=== PATIENT | female | born 1950 | race Caucasian/White ===

== ENCOUNTER 2018-11-07 22:20 | Emergency (ER) | payer MEDICARE, BC, SELFPAY ==
[2018-11-07 22:22] VITALS: BP 171/97; PULSE 113; RESP 18; TEMP 36.6; O2SAT 99
--- NOTE | 2018-11-07 22:46 | W.ED.GENAD ---
Discharge Plan Disposition Patient Disposition: HOME Condition: Good Discharge Details Chief Complaint: Trauma Clinical Impression: Concussion, Contusion Reason For Visit: CHARLENE Primary Care Provider: Rabia Dodson ED Provider: Gonzalo Cornelius Home Meds and New Rx's Prescriptions: No Action lisinopril 10 MG tablet 10 mg PO DAILY Qty: 30 RF: 0 Discharge Instructions Instructions: Concussion (ED), Contusion in Adults (ED) Additional Instructions: Please use ice, Tylenol, and Motrin for control of the pain and swelling. Please follow-up promptly with your primary care provider in the next 24-48 hours. If you notice any worsening of your symptoms, or any new symptoms such as vomiting, diarrhea, fever, chills, shortness of breath, chest pain, numbness, weakness, or fainting , please return immediately to the emergency department for reevaluation. Please follow up with your primary care provider as soon as possible for reassessment and reevaluation. As always, it was a pleasure participating in your medical care today. Referrals: Rabia Dodson [Primary Care Provider] - Medical Decision Making This is a pleasant 68-year-old female who is on no blood thinners who presents for fall. She fell downstairs earlier today after having a few beers while watching [employer] game. Maximum distance might have been 13 steps. Questionable loss of consciousness. Physical exam demonstrates a notable left-sided scalp hematoma, no midline C-spine thoracic or lumbar spine tenderness. No evidence of hemotympanum, or other red flags on exam. No abnormalities on chest exam or abdominal exam. Because of the patient's hematoma, age, and other risk factors we will get a CT scan of the head to rule out any acute process or bleed. Clinically she shows no signs of clinical intoxication at this time, and demonstrates a normal neurologic exam. I am concerned that the patient most likely suffered from a notable concussion. 11:[address] imaging has returned and shows no evidence of acute bleed. Notable hematoma is present over the patient's left scalp. No other concerning findings on physical exam. No other significant abnormalities on exam. She continues to demonstrate a normal neurologic exam. The patient appears very clinically sober, and shows no neurologic deficits on repeat clinical exam at this time. I feel her signs and symptoms are consistent with a fall and subsequent notable concussion. The normal mental status, no neurologic deficits, no other abnormalities and a CT scan negative for acute bleed after her observation. Here I feel she can be safely discharged home. who is at bedside does feel comfortable with this plan. I have extensively reviewed the treatment plan and discharge instructions with the patient and their family. I have addressed all patient concerns at this time. The patient and family was made aware of what symptoms to monitor for that would warrant a return to the emergency department. Discussed the plan with the patient and family, they demonstrate verbal understanding and agreement with our assessment and plan at this time. EXAM: CT Head Without Contrast COMPARISON: No relevant prior studies available. FINDINGS: Brain: Typical for age. No hemorrhage. No evidence of acute infarct. No mass. Ventricles: No ventriculomegaly. Bones/joints: Unremarkable. Sinuses: No sinus fluid. Mastoid air cells: Unremarkable. Soft tissues: Scalp hematoma.. IMPRESSION: No acute intracranial EXAM: CT Cervical Spine Without Contrast COMPARISON: No relevant prior studies available. FINDINGS: Vertebrae: No acute fracture. Normal alignment. Vertebral body heights preserved. Discs/Spinal canal/Neural foramina: Typical for age. Soft tissues: Unremarkable. Lungs: Lung apices are unremarkable as visualized. IMPRESSION: No acute findings. Ppaj-xk-cxbnkfqy degenerative changes. Thank you for allowing us to participate in the care of your patient. Dictated and Authenticated by: Juan Rodriguez MD [facility] General Date/Time Provider Initiated Documentation: 11/07/18 22:30. [facility] Narrative: This is a 68-year-old female with past medical history of hypertension, who presents today for evaluation of a fall. The patient is on no blood thinners. Family states that roughly 1 hour prior to arrival after having a few beers after watching [employer] game patient fell down a flight of 13 steps. Patient does not recall the event, and family who is nearby was uncertain if she fell from the top or if she had been jail down. Maximum distance was 13 steps. After hearing a thud, family rushed down and found the patient who did respond to questioning, had spontaneous movement, showed no clear signs of loss of consciousness but was slightly confused. She did have pain behind her left head, as well as a mild hematoma. Patient had no other complaints at that time. On EMS arrival vital signs were stable, blood glucose is normal. Patient was able to get up and ambulate to the stretcher without significant difficulty but did need some assistance. Currently aside from mild headache the patient has no complaints including no complaints of numbness, tingling, vision changes, neck pain, chest pain, back pain, abdominal pain. Patient does complain of slight memory loss from today, but denies any other complaints. No other modifying factors. The patient denies any pertinent family history, IV or illicit drug use, or recent surgeries. Related Data Home Medications Medication Instructions Recorded Confirmed lisinopril 10 mg PO DAILY #30 tablet 04/22/16 Previous Rx's Medication Instructions Recorded lisinopril 10 mg PO DAILY #30 tablet 04/22/16 Allergies Allergy/AdvReac Type Severity Reaction Status Date / Time Penicillins Allergy Intermediate Hives Unverified 04/22/16 14:00 narcotics AdvReac Intermediate constipatio Uncoded 04/22/16 14:45 n General Stated Complaint: Trauma FLY: 3 Review of Systems Review of Systems All systems reviewed & are unremarkable except as noted in HPI and below PFSH Social History Smoking/Tobacco Use Status: Never Exam Narrative Exam Narrative: 1.Const: Well-nourished, Well-developed, appearing stated age 2.Eyes: PERRL, no conjunctival injection, and symmetrical lids. 3.ENT: Atraumatic external nose and ears. Moist MM. Neck: Symmetric, trachea midline, No thyromegaly. Notable hematoma over the patient's left superior posterior scalp. No evidence of deformity there is no evidence of raccoon eyes, quintero sign, CSF rhinorrhea, mastoid tenderness, cranial crepitus, hemotympanum, exophthalmos, or hyphema. Patient demonstrates intact dentition with no signs of tooth avulsion or fracture, no signs of jaw deformity, no evidence of a LeFort's fracture, with an intact palate, nose and orbital region. There is no evidence of a nasal septal hematoma. No proptosis. Jaw closes symmetrically. Airway is clear. 4.CVS: Regular rate and rhythm, Normal s1 and s2. No murmurs, carotid bruits, rubs, or gallops. Radial pulses 2+ bilaterally and symmetric. Dorsalis pedis pulses 2+ bilaterally and symmetric. 2+ capillary refill. No evidence of distant heart sounds. No extremity edema. No evidence of gross hemorrhage. 5.RESP: Airway clear, no obstructions. No abrasions or ecchymosis. Chest movement symmetric with respirations. No chest wall tenderness. Trachea midline. No crepitus. No step offs. No paradoxical movements. Lungs are clear to auscultation bilaterally. No rales, rhonchi, wheezing or stridor. Breath sound symmetric. No Sucking chest wounds. No clinical evidence of significant chest trauma. 6.GI: Soft, Nontender/Nondistended, No hepatosplenomegaly. No guarding or rebound. 7.MSK: Notable hematoma on the left superior posterior scalp., Extremities w/o deformity or ttp No cyanosis or clubbing, Normal movement of all extremities no midline tenderness to palpation over the CTLS spine. Normal ROM in flexion, extension, side bend, and rotation. Patient has +5 out of 5 strength in the lower extremities in dorsiflexion and plantarflexion, knee flexion and extension, hip flexion and extension. There is +2 over 2 dorsalis pedis pulses bilaterally. There is normal sensation to the skin with light touch at the foot, knee, and hip. Normal saddle sensation. Good sensation over the deep sural nerve area bilaterally. Rectal exam deferred. Reflexes are +2 over 4 in the patellar reflex bilaterally. +5 out of 5 strength in the medial, ulnar, radial nerve distribution bilaterally in the hands as well as intact light touch sensation to these dermatomes on the hands 8.Skin: Warm, Dry. No rashes or lesions. Please see ENT/musculoskeletal for description of hematoma. No evidence of laceration. No evidence of abrasion. 9.Neuro: library clerk II-XII grossly intact. Sensation grossly intact, no focal neurologic deficits. All 6 cardinal planes of vision are fully intact. No evidence of rotatory or vertical nystagmus. The patient demonstrated a normal duyoot-rbun-xtokvm, good dexterity. There was no evidence of dysdiadochokinesia. Patient was able to ambulate without difficulty. There was no wide-based gait. Romberg, and qpig-rw-erge are both normal on testing. Sensation was intact bilaterally as well as muscle strength bilaterally for all extremities. Patient was able to verbalize butter cup with no slurring, or miss pronunciation. 10.Psych: (AAO) x3. Appropriate mood and affect. Patient does not recall what she had for dinner, nor does she recall the fall however she remembers events from earlier today as well as previous memories from this week. Course Vital Signs Temperature 36.6 C 11/07/18 22:22 Pulse 113 H 11/07/18 22:22 Respiratory Rate 18 11/07/18 22:22 Blood Pressure 171/97 H 11/07/18 22:22 Pulse Oximetry 99 11/07/18 22:22 Temperature 36.6 C 11/07/18 22:22 Temperature Source Skin 11/07/18 22:22 Pulse 113 H 11/07/18 22:22 Respiratory Rate 18 11/07/18 22:22 Respiratory Effort Non-Labored 11/07/18 22:25 Respiratory Depth Normal 11/07/18 22:25 Respiratory Pattern Normal 11/07/18 22:25 Blood Pressure 171/97 H 11/07/18 22:22 Blood Pressure Position Sitting 11/07/18 22:22 Pulse Oximetry 99 11/07/18 22:22 Oxygen Delivery Method Room Air 11/07/18 22:22 Oxygen Flow Rate 0 11/07/18 22:22
[2018-11-07] MEDS: Acetaminophen 500 MG TAB 1000 MG PO (22:52)
[2018-11-07] MEDS: Normal Saline 1,000 ML 1000 ML IV (22:52)
--- NOTE | 2018-11-07 22:52 | DI.CT_ITS ---
SYMPTOM/DIAGNOSIS: FELL, LARGE LT SCALP HEMATOMA, ? BLEED NONCONTRAST HEAD CT: A noncontrast enhanced examination was carried out according to the usual protocol. Atrophic changes consistent with age are noted. There is no evidence of an intra/extra-axial hemorrhage, mass or fluid collection or edema. Nothing to suggest a territorial infarct. The ventricles are normal. There is no skull fracture. The sinuses are normal. The mastoid air cells are unremarkable. Note is made of a scalp hematoma. SUMMARY: No acute intracranial abnormality is seen. C-SPINE CT: A C-spine CT was obtained according to the usual protocol without contrast enhancement. There is no evidence of a fracture, subluxation or dislocation involving the cervical spine. The vertebral bodies are intact. Degenerative bony changes associated with disc space narrowing are noted at C5-C6 and C6-C7. Note is made of moderately prominent posterior spurring at the C5-C6 and C6-C7 levels. There is no evidence of significant foraminal narrowing. There is some compromise of the AP diameter of the neural canal, which has a maximal diameter of 10 mm. The posterior elements are intact. There are facet joint degenerative changes. The odontoid is intact and is closely applied to the anterior arch of C1. The prevertebral soft tissues appear unremarkable. SUMMARY: Degenerative changes as described above. No evidence of a fracture, or subluxation or dislocation.
--- NOTE | 2018-11-07 22:53 | ED.GENADUL_ITS ---
Discharge Plan Disposition Patient Disposition: HOME Condition: Good Discharge Details Chief Complaint: Trauma Clinical Impression: Concussion, Contusion Reason For Visit: CHARLENE Primary Care Provider: Rabia Dodson ED Provider: Gonzalo Cornelius Home Meds and New Rx's Prescriptions: No Action lisinopril 10 MG tablet 10 mg PO DAILY Qty: 30 RF: 0 Discharge Instructions Instructions: Concussion (ED), Contusion in Adults (ED) Additional Instructions: Please use ice, Tylenol, and Motrin for control of the pain and swelling. Please follow-up promptly with your primary care provider in the next 24-48 hours. If you notice any worsening of your symptoms, or any new symptoms such as vomiting, diarrhea, fever, chills, shortness of breath, chest pain, numbness, weakness, or fainting , please return immediately to the emergency department for reevaluation. Please follow up with your primary care provider as soon as possible for reassessment and reevaluation. As always, it was a pleasure participating in your medical care today. Referrals: Rabia Dodson [Primary Care Provider] - Medical Decision Making This is a pleasant 68-year-old female who is on no blood thinners who presents for fall. She fell downstairs earlier today after having a few beers while watching [employer] game. Maximum distance might have been 13 steps. Questionable loss of consciousness. Physical exam demonstrates a notable left-sided scalp hematoma, no midline C-spine thoracic or lumbar spine tenderness. No evidence of hemotympanum, or other red flags on exam. No abnormalities on chest exam or abdominal exam. Because of the patient's hematoma, age, and other risk factors we will get a CT scan of the head to rule out any acute process or bleed. Clinically she shows no signs of clinical intoxication at this time, and demonstrates a normal neurologic exam. I am concerned that the patient most likely suffered from a notable concussion. 11:[address] imaging has returned and shows no evidence of acute bleed. Notable hematoma is present over the patient's left scalp. No other concerning findings on physical exam. No other significant abnormalities on exam. She continues to demonstrate a normal neurologic exam. The patient appears very clinically sober, and shows no neurologic deficits on repeat clinical exam at this time. I feel her signs and symptoms are consistent with a fall and subsequent notable concussion. The normal mental status, no neurologic deficits, no other abnormalities and a CT scan negative for acute bleed after her observation. Here I feel she can be safely discharged home. who is at bedside does feel comfortable with this plan. I have extensively reviewed the treatment plan and discharge instructions with the patient and their family. I have addressed all patient concerns at this time. The patient and family was made aware of what symptoms to monitor for that would warrant a return to the emergency department. Discussed the plan with the patient and family, they demonstrate verbal understanding and agreement with our assessment and plan at this time. EXAM: CT Head Without Contrast COMPARISON: No relevant prior studies available. FINDINGS: Brain: Typical for age. No hemorrhage. No evidence of acute infarct. No mass. Ventricles: No ventriculomegaly. Bones/joints: Unremarkable. Sinuses: No sinus fluid. Mastoid air cells: Unremarkable. Soft tissues: Scalp hematoma.. IMPRESSION: No acute intracranial EXAM: CT Cervical Spine Without Contrast COMPARISON: No relevant prior studies available. FINDINGS: Vertebrae: No acute fracture. Normal alignment. Vertebral body heights preserved. Discs/Spinal canal/Neural foramina: Typical for age. Soft tissues: Unremarkable. Lungs: Lung apices are unremarkable as visualized. IMPRESSION: No acute findings. Gjfl-uv-mcslwfvu degenerative changes. Thank you for allowing us to participate in the care of your patient. Dictated and Authenticated by: Juan Rodriguez MD [facility] General Date/Time Provider Initiated Documentation: 11/07/18 22:30 . [facility] Narrative: This is a 68-year-old female with past medical history of hypertension, who presents today for evaluation of a fall. The patient is on no blood thinners. Family states that roughly 1 hour prior to arrival after having a few beers after watching [email or web address] game patient fell down a flight of 13 steps. Patient does not recall the event, and family who is nearby was uncertain if she fell from the top or if she had been mcc down. Maximum distance was 13 steps. After hearing a thud, family rushed down and found the patient who did respond to questioning, had spontaneous movement, showed no clear signs of loss of consciousness but was slightly confused. She did have pain behind her left head, as well as a mild hematoma. Patient had no other complaints at that time. On EMS arrival vital signs were stable, blood glucose is normal. Patient was able to get up and ambulate to the stretcher without significant difficulty but did need some assistance. Currently aside from mild headache the patient has no complaints including no complaints of numbness, tingling, vision changes, neck pain, chest pain, back pain, abdominal pain. Patient does complain of slight memory loss from today, but denies any other complaints. No other modifying factors. The patient denies any pertinent family history, IV or illicit drug use, or recent surgeries. Related Data Home Medications Medication Instructions Recorded Confirmed lisinopril 10 mg PO DAILY #30 tablet 04/22/16 Previous Rx's Medication Instructions Recorded lisinopril 10 mg PO DAILY #30 tablet 04/22/16 Allergies Allergy/AdvReac Type Severity Reaction Status Date / Time Penicillins Allergy Intermediate Hives Unverified 04/22/16 14:00 narcotics AdvReac Intermediate constipatio Uncoded 04/22/16 14:45 n General Stated Complaint: Trauma FLY: 3 Review of Systems Review of Systems All systems reviewed & are unremarkable except as noted in HPI and below PFSH Social History Smoking/Tobacco Use Status: Never Exam Narrative Exam Narrative: 1.Const: Well-nourished, Well-developed, appearing stated age 2.Eyes: PERRL, no conjunctival injection, and symmetrical lids. 3.ENT: Atraumatic external nose and ears. Moist MM. Neck: Symmetric, trachea midline, No thyromegaly. Notable hematoma over the patient's left superior posterior scalp. No evidence of deformity there is no evidence of raccoon eyes, quintero sign, CSF rhinorrhea, mastoid tenderness, cranial crepitus, hemotympanum, exophthalmos, or hyphema. Patient demonstrates intact dentition with no signs of tooth avulsion or fracture, no signs of jaw deformity, no evidence of a LeFort's fracture, with an intact palate, nose and orbital region. There is no evidence of a nasal septal hematoma. No proptosis. Jaw closes symmetrically. Airway is clear. 4.CVS: Regular rate and rhythm, Normal s1 and s2. No murmurs, carotid bruits, rubs, or gallops. Radial pulses 2+ bilaterally and symmetric. Dorsalis pedis pulses 2+ bilaterally and symmetric. 2+ capillary refill. No evidence of distant heart sounds. No extremity edema. No evidence of gross hemorrhage. 5.RESP: Airway clear, no obstructions. No abrasions or ecchymosis. Chest movement symmetric with respirations. No chest wall tenderness. Trachea midline. No crepitus. No step offs. No paradoxical movements. Lungs are clear to auscultation bilaterally. No rales, rhonchi, wheezing or stridor. Breath sound symmetric. No Sucking chest wounds. No clinical evidence of significant chest t rauma. 6.GI: Soft, Nontender/Nondistended, No hepatosplenomegaly. No guarding or rebound. 7.MSK: Notable hematoma on the left superior posterior scalp., Extremities w/o deformity or ttp No cyanosis or clubbing, Normal movement of all extremities no midline tenderness to palpation over the CTLS spine. Normal ROM in flexion, extension, side bend, and rotation. Patient has +5 out of 5 strength in the lower extremities in dorsiflexion and plantarflexion, knee flexion and extension, hip flexion and extension. There is +2 over 2 dorsalis pedis pulses bilaterally. There is normal sensation to the skin with light touch at the foot, knee, and hip. Normal saddle sensation. Good sensation over the deep sural nerve area bilaterally. Rectal exam deferred. Reflexes are +2 over 4 in the patellar r eflex bilaterally. +5 out of 5 strength in the medial, ulnar, radial nerve distribution bilaterally in the hands as well as intact light touch sensation to these dermatomes on the hands 8.Skin: Warm, Dry. No rashes or lesions. Please see ENT/musculoskeletal for description of hematoma. No evidence of laceration. No evidence of abrasion. 9.Neuro: social media director II-XII grossly intact. Sensation grossly intact, no focal neurologic deficits. All 6 cardinal planes of vision are fully intact. No evidence of rotatory or vertical nystagmus. The patient demonstrated a normal njdfsy-kiwo-mayaiw, good dexterity. There was no evidence of dysdiadochokinesia. Patient was able to ambulate without difficulty. There was no wide-based gait. Romberg, and dyvp-ta-chws are both normal on testing. Sensation was intact bilaterally as well as muscle strength bilaterally for all extremities. Patient was able to verbalize butter cup with no slurring, or miss pronunciation. 10.Psych: (AAO) x3. Appropriate mood and affect. Patient does not recall what she had for dinner, nor does she recall the fall however she remembers events from earlier today as well as previous memories from this week. Course Vital Signs Temperature 36.6 C 11/07/18 22:22 Pulse 113 H 11/07/18 22:22 Respiratory Rate 18 11/07/18 22:22 Blood Pressure 171/97 H 11/07/18 22:22 Pulse Oximetry 99 11/07/18 22:22 Temperature 36.6 C 11/07/18 22:22 Temperature Source Skin 11/07/18 22:22 Pulse 113 H 11/07/18 22:22 Respiratory Rate 18 11/07/18 22:22 Respiratory Effort Non-Labored 11/07/18 22:25 Respiratory Depth Normal 11/07/18 22:25 Respiratory Pattern Normal 11/07/18 22:25 Blood Pressure 171/97 H 11/07/18 22:22 Blood Pressure Position Sitting 11/07/18 22:22 Pulse Oximetry 99 11/07/18 22:22 Oxygen Delivery Method Room Air 11/07/18 22:22 Oxygen Flow Rate 0 11/07/18 22:22
--- NOTE | 2018-11-07 23:11 | DI.VRAD_ITS ---
EXAM: CT Head Without Contrast EXAM DATE/TIME: 11/07/2018 10:32 PM CLINICAL HISTORY: 68 years old, female; Injury or trauma; Fall; Initial encounter; Blunt trauma (contusions or hematomas); With loss of consciousness; Not specified; Injury date: 11/07/2018; Injury details: Fell down stairs TECHNIQUE: Axial computed tomography images of the head/brain without contrast. All CT scans at this facility use at least one of these dose optimization techniques: automated exposure control; mA and/or kV adjustment per patient size (includes targeted exams where dose is matched to clinical indication); or iterative reconstruction. Coronal and sagittal reformatted images were created and reviewed. COMPARISON: No relevant prior studies available. FINDINGS: Brain: Typical for age. No hemorrhage. No evidence of acute infarct. No mass. Ventricles: No ventriculomegaly. Bones/joints: Unremarkable. Sinuses: No sinus fluid. Mastoid air cells: Unremarkable. Soft tissues: Scalp hematoma.. IMPRESSION: No acute intracranial abnormality. Scalp hematoma. EXAM: CT Cervical Spine Without Contrast EXAM DATE/TIME: 11/07/2018 10:32 PM CLINICAL HISTORY: 68 years old, female; Injury or trauma; Fall; Initial encounter; Blunt trauma (contusions or hematomas); With loss of consciousness; Not specified; Injury date: 11/07/2018; Injury details: Fell down stairs TECHNIQUE: Axial computed tomography images of the cervical spine without intravenous contrast. All CT scans at this facility use at least one of these dose optimization techniques: automated exposure control; mA and/or kV adjustment per patient size (includes targeted exams where dose is matched to clinical indication); or iterative reconstruction. Coronal and sagittal reformatted images were created and reviewed. COMPARISON: No relevant prior studies available. FINDINGS: Vertebrae: No acute fracture. Normal alignment. Vertebral body heights preserved. Discs/Spinal canal/Neural foramina: Typical for age. Soft tissues: Unremarkable. Lungs: Lung apices are unremarkable as visualized. IMPRESSION: No acute findings. [id number] degenerative changes. Dictated and Authenticated by: Juan Rodriguez MD. Ordering:WILBER Sánchez MD
[2018-11-07 23:25] VITALS: BP 164/91; PULSE 108; RESP 16; TEMP 36.6; O2SAT 99
== END 2018-11-07 23:37 | disposition home or self-care (01) ==
PROVIDERS: Emergency Provider Student in an Organized Health Care Education/Training Program; PCP Family Medicine
DX: S06.0X0A Concussion without loss of consciousness, initial encounter (principal); S00.03XA Contusion of scalp, initial encounter; W10.8XXA Fall (on) (from) other stairs and steps, initial encounter; I10 Essential (primary) hypertension
CPT/HCPCS: 96360; 99283; 70450; 72125

== ENCOUNTER 2019-08-01 00:23 | Outpatient (CLI) | payer MEDICARE, BC, SELFPAY ==
--- NOTE | 2019-08-01 11:05 | DI.MAMMO_ITS ---
EXAM: MAMMO SCREENING CLINICAL HISTORY: SCREENING Z12.31 TECHNIQUE: Mammograms were interpreted according to the usual protocol including computer analysis w [employer] CAD system, tomosynthesis and C-view imaging. COMPARISON: 2016 FINDINGS: The breasts are composed of heterogeneous densities, which may obscure small masses, breast density c ategory C. No suspicious masses or suspicious microcalcifications are seen. No skin thickening or ab normal axillary lymph nodes are seen. There has been no significant change from prior exam. IMPRESSION: Category 1, negative mammogram. Yearly screening mammography is recommended. BI-RADS Cat 1 - Negative Breast Density - Category C - Heterogeneously dense
== END 2019-08-01 00:43 ==
PROVIDERS: PCP Family Medicine; Visit Provider Family Medicine
DX: Z12.31 Encounter for screening mammogram for malignant neoplasm of breast (principal)
CPT/HCPCS: 77063; 77067

== ENCOUNTER 2019-12-09 08:45 | Outpatient (REF) | payer MEDICARE, BC, SELFPAY ==
[2019-12-09 11:44] LABS: ALT 30 U/L (14-59); AST 21 U/L (15-37); Albumin 4.1 g/dL (3.4-5.0); Alkaline Phosphatase 77 U/L (46-116); Anion Gap 10.7 mmol/L (3-11); BUN 7 mg/dL (7-18); Bilirubin, Total 0.6 mg/dL (0.2-1.0); CO2 28.3 mmol/L (21.0-32.0); CREATININE 0.76 mg/dL (0.55-1.02); Calcium 9.6 mg/dL (8.5-10.1); Calculated LDL 205 mg/dL (<100); Chloride 102 mmol/L (98-107); Cholesterol 301 mg/dL (<200); Glucose 114 mg/dL (74-106); HDL Cholesterol 65 mg/dL (40-60); Potassium 4.6 mmol/L (3.5-5.1); Sodium 141 mmol/L (136-145); Total Protein 7.4 g/dL (6.4-8.2); Triglyceride 158 mg/dL (<150)
== END 2019-12-09 09:05 ==
LOC: NCHCN 08:45
PROVIDERS: PCP Family Medicine; Visit Provider Family Medicine
DX: E78.5 Hyperlipidemia, unspecified (principal); I10 Essential (primary) hypertension
CPT/HCPCS: 80053; 80061

== ENCOUNTER 2020-10-14 16:14 | Outpatient (REF) | payer MEDICARE, BC, SELFPAY ==
[2020-10-16 17:15] LABS: COVID-19 RT-PCR UVMMC Result Negative (Negative)
== END 2020-10-14 16:34 ==
LOC: NCHCN 16:14
PROVIDERS: PCP Family Medicine; Visit Provider Family Medicine
DX: J06.9 Acute upper respiratory infection, unspecified (principal)
CPT/HCPCS: U0003

== ENCOUNTER 2020-10-22 21:40 | Outpatient (REF) | payer MEDICARE, BC, SELFPAY ==
[2020-10-22 21:51] LABS: Bilirubin Negative (Negative); Blood Trace-intact (Negative); Clarity Sl Cloudy (Clear); Glucose Negative (Negative); Ketones Negative (Negative); Leukocyte Esterase Moderate (Negative); Nitrite Negative (Negative); Specific Gravity 1.015 (1.005-1.025); Urobilinogen 0.2 EU/dL (Up TO 0.2)
[2020-10-22 21:55] LABS: Bacteria Moderate HPF (Negative); Epithelial Cells Few HPF (Negative); WBC 20-50 HPF (0-5)
[2020-10-22 21:56] LABS: C & S Indicated? C&S Done As Ordered; Casts Negative LPF (Negative); Crystals Negative HPF (Negative); Mucus Negative (Negative)
== END 2020-10-22 22:00 ==
LOC: NCHCN 21:40
PROVIDERS: PCP Family Medicine; Visit Provider Family Medicine
DX: N39.0 Urinary tract infection, site not specified (principal)
CPT/HCPCS: 87077; 81003; 81015; 87086; 87186

== ENCOUNTER 2020-10-31 20:27 | Emergency (ER) | payer MEDICARE, BC, SELFPAY ==
[2020-10-31 20:33] VITALS: BP 135/102; PULSE 106; RESP 18; TEMP 37.2; O2SAT 93
[2020-10-31 20:40] VITALS: RESP 16
--- NOTE | 2020-10-31 20:45 | DI.CT_ITS ---
EXAM: CT CHEST PE CTA CLINICAL HISTORY: cough and fevers. TECHNIQUE: Imaging Protocol: Axial CT angiography was performed with multi-slice acquisition and mu lti-planar and/or 3D reconstructions. CONTRAST MATERIAL: Intravenous: Omnipaque 350 Contrast volume:80 mL COMPARISON: CT CHEST FOR PULMONARY EMBOLUS from 04/22/2016 FINDINGS: Tracheobronchial tree: Patent where visualized. Pulmonary parenchyma: No consolidation or dominant measurable mass. No architectural distortion. Depe ndent atelectasis in the lung bases. Pulmonary Arteries: No evidence of filling defect to suggest pulmonary emboli. Mediastinum and Yuliya: No dominant adenopathy or fluid collection. Visualized thyroid gland: Unremarkable. Pleura: No effusion or pneumothorax. Heart: The heart is not dilated. Mild coronary artery calcification. No pericardial effusion. Aorta: Thoracic aorta non-dilated. No evidence of dissection. Upper abdomen: Diffuse fatty infiltration of the liver. Bones: Degenerative changes. Soft tissues: Unremarkable. IMPRESSION: No evidence of pulmonary embolism, thoracic aortic dissection or aneurysm. RADIATION DOSE DELIVERED: 257.51mGy.cm Total DLP DATA REPOSITORY: All CT scans at this facility are submitted to the National Radiology Data Registry (NRDR) Dose Index Registry (DIR) with the [employer] (ACR). RADIATION OPTIMIZATION: All CT scans at this facility use at least one of these dose optimization te chniques: automated exposure control; mA and/or kV adjustment per patient size (includes targeted exa ms where dose is matched to clinical indication); or iterative reconstruction.
--- NOTE | 2020-10-31 20:51 | W.ED.GENAD ---
Discharge Plan Disposition Patient Disposition: HOME Condition: Stable Discharge Details Clinical Impression: Hyponatremia, UTI (urinary tract infection) Primary Care Provider: Rabia Dodson ED Provider: aNte Solano Home Meds and New Rx's Prescriptions: New levofloxacin 750 mg tablet 750 mg PO DAILY Qty: 5 RF: 0 Continued lisinopril 10 MG tablet 10 mg PO DAILY Qty: 30 RF: 0 metoprolol succinate 25 mg Tablet Extended Release 24 Hr 25 mg PO DAILY RF: 0 Discontinued valacyclovir [Valtrex] 500 mg Tablet 500 mg PO DAILY RF: 0 losartan-hydrochlorothiazide 100-25 mg Tablet 1 tab PO DAILY RF: 0 nitrofurantoin 100 mg Capsule 100 mg PO BID RF: 0 Discharge Instructions Instructions: Urinary Tract Infection in Women (ED), Hyponatremia (ED) Additional Instructions: your blood work showed low sodium likely from dehydration and also being on the hydrochlorothiazide. you still have a urinary tract infection stop taking the nitrofurantoin and start the levofloxacin stop taking the hydrochlorothiazide medicine and see your primary care provider this week to recheck your sodium level, discuss restarting this medicine after results return if you feel more ill, have persistent vomit or severe abdominal pain or back pain return to the emergency department Medical Decision Making 70 yo female with hx of htn comes in with 2 days of intermittent fevers to 102, feeling dehydrated and cough. She states the first few days of the month she developed a rash on the right chest and was diagnosed with shingles and started on valtrex and finished this 2 days ago. The rash is improving and she also is on nitrofurantoin which she will finishes tomorrow. She states her uti symptoms have resolved but started to have fevers and not drinking much along with a cough 2 days ago. Denies chest pain, abdominal pain, headache, neck pain/stiffness. She is speaking in full sentences on exam with clear lung sounds, has several healing patches on right lateral chest consistent with resolving shingles, no warmth or spreading redness. Has no cva tenderness, no abdominal tenderness, no meningismus, no focal motor or sensation deficits. Denies urinary symptoms. Given the reported fevers will obtain cultures, lacatate, influenza test and covid test. Given the cough and fevers will obtain cta to evaluate for possible pe vs pneumonia as well. 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 urine still shows evidence of infection with bacteria and leukocytes, will tx with levofloxacin. She feels well and has stable exam. Her blood work was remarkable for a sodium of 124 which is likely from lack of fluid intake being on hctz. She feels well enough to go home which I feel is reasonable given is able to take PO. I am going to have her stop the nitrofurantoin and start levofloxacin and hold her hctz and recheck her sodium with her pcp this week. Return precautions given Differential Diagnosis Differential Diagnosis: pyelo, pe, pna, covid, influenza Imaging Data Radiologic Study: Attestation: I personally reviewed and interpreted this imaging study as follows: Imaging: CT Scan Radiologist's impression: no acute findings Lab Data Lab results reviewed: Yes I reviewed the patient's lab results. HPI General Mode of arrival: ambulatory. Date/Time Provider Initiated Documentation: 10/31/20 20:28. Limitations to Documentation: no limitations. Information obtained by: patient. History of Present Illness 70 year old F presents to the emergency department with the chief complaint of fevers, described as moderate, Patient started experiencing this day(s) (2) and it has been intermittent. No relieving factors improve symptom(s), No exacerbating factors reported . Patient notes cough. Patient did receive the following treatments prior to arrival, none Related Data Home Medications Medication Instructions Recorded Confirmed lisinopril 10 mg PO DAILY #30 tablet 04/22/16 10/31/20 levofloxacin 750 mg PO DAILY #5 tab 10/31/20 metoprolol succinate 25 mg PO DAILY 10/31/20 10/31/20 Previous Rx's Medication Instructions Recorded lisinopril 10 mg PO DAILY #30 tablet 04/22/16 levofloxacin 750 mg PO DAILY #5 tab 10/31/20 Allergies Allergy/AdvReac Type Severity Reaction Status Date / Time Penicillins Allergy Intermediate Hives Unverified 10/31/20 20:39 narcotics AdvReac Intermediate constipatio Uncoded 10/31/20 20:39 n General Stated Complaint: GenMedical FLY: 3 Review of Systems All systems reviewed & are unremarkable except as noted in HPI and below Constitutional Constitutional: Denies chills Cardiovascular Cardiovascular: Denies chest pain and Denies dyspnea Respiratory Respiratory: Denies dyspnea Gastrointestinal Gastrointestinal: Denies abdominal pain, Denies nausea and Denies vomiting Musculoskeletal Musculoskeletal: Denies joint swelling Psychiatric Psychiatric: Denies depression [facility] Medical History (Updated 10/31/20 @ 22:25 by Nate Solano MD) Bladder infection High blood pressure Shingles Surgical History (Updated 10/31/20 @ 20:49 by Allyssa Monge) History of hysterectomy Social History Smoking/Tobacco Use Status: Never Smoking risk assessment performed?: Yes Alcohol Intake: current Alcohol Intake frequency: 0-2 drinks per day Alcohol type: beer Drug use: Never Substance use type: does not use Do you feel safe at home: Yes Do you feel safe in your relationship?: Yes Exam Const General: no acute distress Orientation: alert HENMT Head: normal to inspection Ears: external ears normal General nose exam: external nose normal Mouth: moist mucous membranes Eyes General: appearance normal, both eyes and all related structures Neck Neck: normal visual inspection Resp Effort & Inspection: normal respiratory effort and able to speak in complete sentences Cardio Rate: regular rate Skin General skin exam: elasticity normal and turgor normal Neuro General: patient alert and patient oriented x3 Extrem General: normal to inspection Psych Mental Status: mental status grossly normal Course Vital Signs Vital signs: Vital Signs Temperature 37.2 C 10/31/20 20:33 Pulse 106 H 10/31/20 20:33 Respiratory Rate 18 10/31/20 20:33 Blood Pressure 135/102 H 10/31/20 20:33 Pulse Oximetry 93 10/31/20 20:33 Temperature 37.2 C 10/31/20 20:33 Temperature Source Temporal Artery Scan 10/31/20 20:33 Pulse 106 H 10/31/20 20:33 Respiratory Rate 16 10/31/20 20:40 Respiratory Effort Non-Labored 10/31/20 20:40 Respiratory Depth Normal 10/31/20 20:40 Respiratory Pattern Normal 10/31/20 20:40 Blood Pressure 135/102 H 10/31/20 20:33 Pulse Oximetry 93 10/31/20 20:33 End Tidal Co2 5 10/31/20 20:33 Lab/Test Results Lab/Test Results: 10/31/20 20:40 Blood Blood Culture - Pending 10/31/20 20:40 Blood Blood Culture - Pending
[2020-10-31] MEDS: Omnipaque 350 MG/ML 100 ML BTL IJ (21:27)
[2020-10-31] MEDS: Normal Saline - Diluent 50 ML VIAL IV (21:30)
[2020-10-31] MEDS: Normal Saline 1,000 ML 1000 ML IV (21:30)
[2020-10-31 21:33] LABS: BE (Venous) 1 mmol/L (-2-3); HCO3 (Venous) 25 mmol/L (23-28); O2 Sat (Venous) 97 %; TCO2 (Venous) 21 mmol/L (24-29); pCO2 (Venous) 32 mmHg (41-51); pO2 (Venous) 78 mmHg
[2020-10-31 21:35] LABS: Lactate 1.1 mmol/L (0.6-1.4)
[2020-10-31 21:37] VITALS: BP 128/89
[2020-10-31 21:37] LABS: Abs Immature Grans 0.08 10^3/uL (0.0-0.06); Absolute Basophil Count 0.05 10^3/uL (0.0-0.2); Absolute Eosinophil Count 0.31 10^3/uL (0.0-0.7); Absolute Lymphocyte Count 0.41 10^3/uL (1.2-3.4); Absolute Monocyte Count 0.83 10^3/uL (0.1-0.8); Basophils % 0.4; Eosinophils % 2.7; HCT 38.6 % (36.0-46.0); HGB 13.6 g/dL (11.2-15.7); Immature Grans % 0.7; Lymphocytes % 3.6; MCHC 35.2 % (32.0-36.0); MCV 93.7 fL (80-95); MPV 9.2 fL (8.0-11.0); Monocytes % 7.3; Neutrophils % 85.3; Nucleated RBC 0 %; Platelet Count 291 10^3/uL (130-400); RBC 4.12 10^6/uL (3.93-5.22); RDW 11.8 % (11.7-14.6); RDW-SD 40.3 fL; WBC 11.33 10^3/uL (4.4-10.8)
[2020-10-31 21:38] LABS: Absolute Neutrophil Count 9.66 10^3/uL (1.2-6.7)
[2020-10-31 21:39] LABS: Bilirubin Negative (Negative); Blood Trace-lysed (Negative); Clarity Sl Cloudy (Clear); Glucose Negative (Negative); Ketones 15 mg/dL (Negative); Leukocyte Esterase Large (Negative); Nitrite Negative (Negative); Specific Gravity 1.015 (1.005-1.025); pH 6.5 (5-8)
[2020-10-31 21:52] LABS: Bacteria Many HPF (Negative); Casts Negative LPF (Negative); Crystals Negative HPF (Negative); Epithelial Cells Few HPF (Negative); Mucus Negative (Negative); RBC 0-2 HPF (0-2); WBC 20-50 HPF (0-5)
[2020-10-31 21:52] LABS: ALT 39 U/L (14-59); AST 28 U/L (15-37); Albumin 3.8 g/dL (3.4-5.0); Alkaline Phosphatase 70 U/L (46-116); Anion Gap 9.6 mmol/L (3-11); BUN 10 mg/dL (7-18); Bilirubin, Total 0.7 mg/dL (0.2-1.0); CO2 24.4 mmol/L (21.0-32.0); CREATININE 0.88 mg/dL (0.55-1.02); Calcium 9.6 mg/dL (8.5-10.1); Chloride 90 mmol/L (98-107); Glucose 141 mg/dL (74-106); Magnesium 1.6 mg/dL (1.8-2.4); Potassium 3.2 mmol/L (3.5-5.1); Total Protein 7.9 g/dL (6.4-8.2)
[2020-10-31 21:53] LABS: C & S Indicated? C&S Done As Ordered
[2020-10-31 21:55] LABS: Sodium 124 mmol/L (136-145)
--- NOTE | 2020-10-31 22:11 | DI.VRAD_ITS ---
PROCEDURE INFORMATION: Exam: CT Angiography Chest With Contrast Exam date and time: 10/31/2020 8:52 PM Age: 70 years old Clinical indication: Patient HX: Cough and fevers TECHNIQUE: Imaging protocol: Computed tomographic angiography of the chest with intravenous contrast. 3D rendering (Not supervised by radiologist): MIP and/or 3D reconstructed images were created by the technologist. COMPARISON: CT CHEST FOR PULMONARY EMBOLUS 04/22/2016 4:39 PM FINDINGS: Pulmonary arteries: No pulmonary embolism identified. Aorta: No thoracic aortic aneurysm or dissection. Thyroid: Normal sized thyroid gland. Lungs: No pulmonary consolidation. Pleural space: No pleural effusion or pneumothorax. Heart: Normal-sized heart. Lymph nodes: No pathologically enlarged mediastinal or hilar lymph nodes. Liver: Probable fatty infiltration of the liver, difficult to confidently diagnose by CT imaging after administration of intravenous contrast. Bones/joints: Lower ribs partially excluded from view and incompletely evaluated. Otherwise, no acute fracture seen among the bones of the chest. Spinal degenerative change with anterior osteophytes at several levels. Soft tissues: No gross soft tissue mass or fluid collection seen in the chest wall. IMPRESSION: No active disease is seen in the chest. Dictated and Authenticated by: Gray Atkins MD. Ordering:FABIÁN Sullivan MD
[2020-10-31] MEDS: levoFLOXacin 500 MG, levoFLOXacin 250 MG 750 MG PO (22:15)
[2020-10-31 22:16] VITALS: BP 112/81; PULSE 88; RESP 16; O2SAT 98
--- NOTE | 2020-10-31 22:23 | NUR.NOTE ---
Nursing Note: REFERAL TO PRIMARY FAXED 10/31/20
[2020-10-31 22:25] VITALS: TEMP 36.6
--- NOTE | 2020-11-02 09:42 | NUR.NOTE ---
Nursing Note:0940--pt called in for Covid test result---Not resulted yet--pt verbalizes understanding.
[2020-11-02 16:11] LABS: COVID-19 RT-PCR UVMMC Result Negative (Negative)
--- NOTE | 2020-11-02 18:31 | NUR.NOTE ---
1835-called Elzbieta with negative Covid result . Verbalizes understanding. Nursing Note:
== END 2020-10-31 22:35 | disposition home or self-care (01) ==
PROVIDERS: Emergency Provider Emergency Medicine; PCP Family Medicine
DX: E87.1 Hypo-osmolality and hyponatremia (principal); E86.0 Dehydration; N39.0 Urinary tract infection, site not specified; Z03.818 Encounter for observation for suspected exposure to other biological agents ruled out
CPT/HCPCS: 36415; 71275; 80053; 82805; 87040; 87449; 96360; 99285; U0003; 81003; 81015; 83605; 83735; 85025; 87086; 99284; J3490

== ENCOUNTER 2020-11-09 15:25 | Outpatient (REF) | payer MEDICARE, BC, SELFPAY ==
[2020-11-09 13:43] LABS: Anion Gap 6.9 mmol/L (3-11); BUN 8 mg/dL (7-18); CO2 24.1 mmol/L (21.0-32.0); CREATININE 0.95 mg/dL (0.55-1.02); Calcium 9.4 mg/dL (8.5-10.1); Chloride 101 mmol/L (98-107); Glucose 91 mg/dL (74-106); Potassium 4.6 mmol/L (3.5-5.1); Sodium 132 mmol/L (136-145)
== END 2020-11-09 15:45 ==
LOC: NCHCN 15:25
PROVIDERS: PCP Family Medicine; Visit Provider Family Medicine
DX: E87.1 Hypo-osmolality and hyponatremia (principal)
CPT/HCPCS: 80048

== ENCOUNTER 2021-04-22 02:01 | Outpatient (CLI) | payer MEDICARE, BC, SELFPAY ==
--- NOTE | 2021-04-22 | DI.MAMMO_ITS ---
Exam(s) MAMMO SCREENING EXAM: MAMMO SCREENING CLINICAL HISTORY: SCREENING, Z12.31 TECHNIQUE: Mammograms were interpreted according to the usual protocol including computer analysis w [employer] CAD system, tomosynthesis and C-view imaging. COMPARISON: 2015 and 2018 FINDINGS: The breasts are composed of heterogeneously dense fibroglandular densities, Breast Density category C . No suspicious masses or suspicious microcalcifications are seen. No skin thickening or abnormal axillary lymph nodes are seen. There has been no significant change from prior exams. IMPRESSION: BI-RADS Category 1, Negative mammogram. Yearly screening mammography is recommended. Breast Density Category C, heterogeneously Dense. The mammogram demonstrates the patient's breast tissue is dense. Dense breast tissue is very common a nd is not abnormal but dense breast tissue can make it harder to find cancer on a mammogram. Also, de nse breast tissue may increase breast cancer risk. This information about the result of the mammogram report was provided to the patient to raise their awareness. Use this report when you speak with the patient about their risks for breast cancer, which includes their family history. At that time, you may recommend additional screening tests (Ultrasound or MRI) as they might be useful based on their r isk. A negative radiographic report should not delay biopsy if a dominant or clinically suspicious mass is present. Up to ten percent of cancers are not identified on mammography. A negative report may reinforce clinical impression. Adenosis and dense breasts may obscure an underlying neoplasm. False positive reports average 6 to 10%.
--- NOTE | 2021-04-22 | DI.DEXA_ITS ---
Exam(s) XR DEXA BONE DENSITY W/WO PEDRO LUIS EXAM: XR DEXA BONE DENSITY W/WO PEDRO LUIS CLINICAL HISTORY: SCREENING FOR OSTEOPOROSIS IN POSTMENOPAUSAL WOMAN,Z78.0 TECHNIQUE: Kaizena C densitometer COMPARISON: CT CHEST FOR PULMONARY EMBOLUS from 04/22/2016 CT CHEST FOR PULMONARY EMBOLUS from 04/22/[address] CHEST PE CTA from 10/31/[address] CHEST PE CTA from 10/31/2020 FINDINGS: Lateral view of the thoracic and lumbar spine shows no evidence of compression fractures. Bone mineral density measurements of the lumbar spine correspond to a total T-score of -0.6, in the n ormal range. Bone mineral density measurements of the left hip correspond to a total T-score of -0.6. The femora l neck T-score is -2.3, consistent with osteopenia.. The left forearm bone mineral density measurements correspond to a T-score of the distal 3rd of -2.5 , consistent with osteoporosis.. IMPRESSION: Normal bone mineral density of the lumbar spine. Osteopenia of the left hip. Osteoporosis of the le ft forearm.
== END 2021-04-22 02:21 ==
PROVIDERS: PCP Family Medicine; Visit Provider Family Medicine
DX: Z12.31 Encounter for screening mammogram for malignant neoplasm of breast (principal); Z78.0 Asymptomatic menopausal state; R92.8 Other abnormal and inconclusive findings on diagnostic imaging of breast; M85.88 Other specified disorders of bone density and structure, other site; M81.0 Age-related osteoporosis without current pathological fracture
CPT/HCPCS: 77063; 77067; 77080

== ENCOUNTER 2022-11-08 12:50 | Outpatient (REF) | payer MEDICARE, SELFPAY ==
[2022-11-08 14:55] LABS: ALT 26 U/L (14-59); AST 20 U/L (15-37); Albumin 4.1 g/dL (3.4-5.0); Alkaline Phosphatase 77 U/L (46-116); Anion Gap 7.5 mmol/L (3-11); BUN 16 mg/dL (7-18); Bilirubin, Total 0.5 mg/dL (0.2-1.0); CO2 29.5 mmol/L (21.0-32.0); CREATININE 0.9 mg/dL (0.55-1.02); Calcium 9.6 mg/dL (8.5-10.1); Calculated LDL 234 mg/dL (<100); Chloride 101 mmol/L (98-107); Cholesterol 329 mg/dL (<200); Estimated GFR 68.77 (mL/min/1.73m2); Glucose 106 mg/dL (74-106); HDL Cholesterol 67 mg/dL (40-60); Potassium 4.7 mmol/L (3.5-5.1); Sodium 138 mmol/L (136-145); Total Protein 7.4 g/dL (6.4-8.2); Triglyceride 141 mg/dL (<150)
[2022-11-08 15:09] LABS: Vitamin D 25 Total 10.5 ng/mL (30-100)
== END 2022-11-08 12:51 | disposition home or self-care (01) ==
LOC: NCHCN 12:50
PROVIDERS: PCP Family Medicine; Visit Provider Family Medicine
DX: Z00.00 Encounter for general adult medical examination without abnormal findings (principal); I10 Essential (primary) hypertension; E78.5 Hyperlipidemia, unspecified
CPT/HCPCS: 80053; 80061; 82306

== ENCOUNTER 2023-11-16 08:51 | Outpatient (REF) | payer MEDICARE, SELFPAY ==
[2023-11-16 15:25] LABS: ALT 35 U/L (14-59); AST 22 U/L (15-37); Alkaline Phosphatase 74 U/L (46-116); BUN 11 mg/dL (7-18); Bilirubin, Total 0.4 mg/dL (0.2-1.0); CREATININE 0.8 mg/dL (0.55-1.02); Calcium 9.6 mg/dL (8.5-10.1); Calculated LDL 229 mg/dL (<100); Chloride 104 mmol/L (98-107); Cholesterol 337 mg/dL (<200); Estimated GFR 78.72 (mL/min/1.73m2); Glucose 109 mg/dL (74-106); HDL Cholesterol 63 mg/dL (40-60); Potassium 4.5 mmol/L (3.5-5.1); Sodium 140 mmol/L (136-145); Total Protein 7.4 g/dL (6.4-8.2); Triglyceride 227 mg/dL (<150)
== END 2023-11-16 08:52 | disposition home or self-care (01) ==
LOC: NCHCN 08:51
PROVIDERS: PCP Family Medicine; Visit Provider Family Medicine
DX: E78.5 Hyperlipidemia, unspecified (principal); I10 Essential (primary) hypertension
CPT/HCPCS: 80053; 80061

== ENCOUNTER 2023-11-22 12:10 | Outpatient (REF) | payer MEDICARE, SELFPAY ==
[2023-11-22 14:30] LABS: HCT 41.9 % (36.0-46.0); HGB 14.1 g/dL (11.2-15.7); MCH 32.6 pg (27.0-33.0); MCHC 33.7 % (32.0-36.0); MCV 97 fL (80-95); MPV 9.4 fL (8.0-11.0); Platelet Count 299 10^3/uL (130-400); RBC 4.33 10^6/uL (3.93-5.22); RDW 11.7 % (11.7-14.6); RDW-SD 41.6 fL; WBC 4.51 10^3/uL (4.4-10.8)
== END 2023-11-22 12:11 | disposition home or self-care (01) ==
LOC: NCHCN 12:10
PROVIDERS: PCP Family Medicine; Visit Provider Family Medicine
DX: Z00.00 Encounter for general adult medical examination without abnormal findings (principal)
CPT/HCPCS: 85027

== ENCOUNTER → 2023-11-29 01:45 | Outpatient (CLI) | payer MEDICARE, SELFPAY ==
--- NOTE | 2023-11-29 | DI.RAD_ITS ---
Exam(s) XR KNEE RT 3V AP,LAT,LENNY EXAM: XR KNEE RT 3V AP,LAT,LENNY CLINICAL HISTORY: MASS RT KNEE JOIN, M25.861. TECHNIQUE: 2D digital imaging was performed of the right knee. Three views obtained. AP, lateral an d PA tunnel views were obtained. COMPARISON: No exams were available for comparison FINDINGS: BONES: No acute fracture is present. No bony destructive lesion is seen. There are findings of a prio r anterior cruciate ligament repair. JOINTS: There are marked tricompartment degenerative changes present characterized by joint space forest rowing and osteophytes. There is chondrocalcinosis seen in the femoral tibial joint and which can be seen with CPPD arthropathy. No joint effusion is seen. SOFT TISSUE: Vascular calcifications are present. IMPRESSION: Marked right knee arthrosis. DATA REPOSITORY: RADIATION DOSE DELIVERED:
--- NOTE | 2023-11-29 | DI.MAMMO_ITS ---
Exam(s) MAMMO SCREENING EXAM: MAMMO SCREENING CLINICAL HISTORY: SCREENING, Z12.31 TECHNIQUE: Mammograms were interpreted according to the usual protocol including computer analysis w [employer] CAD system, tomosynthesis and C-view imaging. COMPARISON: 2015 through 2020 FINDINGS: The breasts are composed of heterogeneously dense fibroglandular densities, Breast Density category C . No suspicious masses or suspicious microcalcifications are seen. No skin thickening or abnormal axillary lymph nodes are seen. There has been no significant change from prior exams. IMPRESSION: BI-RADS Category 1, Negative mammogram. Yearly screening mammography is recommended. Breast Density Category C, heterogeneously Dense. The mammogram demonstrates the patient's breast tissue is dense. Dense breast tissue is very common a nd is not abnormal but dense breast tissue can make it harder to find cancer on a mammogram. Also, de nse breast tissue may increase breast cancer risk. This information about the result of the mammogram report was provided to the patient to raise their awareness. Use this report when you speak with the patient about their risks for breast cancer, which includes their family history. At that time, you may recommend additional screening tests (Ultrasound or MRI) as they might be useful based on their r isk. A negative radiographic report should not delay biopsy if a dominant or clinically suspicious mass is present. Up to ten percent of cancers are not identified on mammography. A negative report may reinforce clinical impression. Adenosis and dense breasts may obscure an underlying neoplasm. False positive reports average 6 to 10%.
== END ==
PROVIDERS: PCP Family Medicine; Visit Provider Family Medicine
DX: Z12.31 Encounter for screening mammogram for malignant neoplasm of breast (principal); M17.11 Unilateral primary osteoarthritis, right knee
CPT/HCPCS: 73562; 77063; 77067

== ENCOUNTER 2024-11-19 10:20 | Outpatient (REF) | payer MEDICARE, SELFPAY ==
[2024-11-19 14:38] LABS: Abs Immature Grans 0.01 10^3/uL (0.0-0.06); Absolute Basophil Count 0.09 10^3/uL (0.0-0.2); Absolute Eosinophil Count 0.36 10^3/uL (0.0-0.7); Absolute Lymphocyte Count 1.32 10^3/uL (1.2-3.4); Absolute Monocyte Count 0.62 10^3/uL (0.1-0.8); Absolute Neutrophil Count 2.31 10^3/uL (1.2-6.7); Basophils % 1.9 %; Eosinophils % 7.6 %; HCT 42.9 % (36.0-46.0); HGB 14.4 g/dL (11.2-15.7); Immature Grans % 0.2 %; MCH 33.3 pg (27.0-33.0); MCHC 33.6 % (32.0-36.0); MCV 99 fL (80-95); MPV 9.8 fL (8.0-11.0); Monocytes % 13.2 %; Neutrophils % 49.1 %; Platelet Count 325 10^3/uL (130-400); RBC 4.32 10^6/uL (3.93-5.22); RDW 11.7 % (11.7-14.6); RDW-SD 42.6 fL; WBC 4.71 10^3/uL (4.4-10.8)
[2024-11-19 15:12] LABS: ALT 28 U/L (14-59); AST 21 U/L (15-37); Albumin 3.9 g/dL (3.4-5.0); Alkaline Phosphatase 80 U/L (46-116); Anion Gap 7.3 mmol/L (3-11); BUN 13 mg/dL (7-18); Bilirubin, Total 0.43 mg/dL (0.2-1.0); CO2 28.7 mmol/L (21.0-32.0); CREATININE 0.9 mg/dL (0.55-1.02); Calcium 9.5 mg/dL (8.5-10.1); Calculated LDL 237 mg/dL (<100); Chloride 103 mmol/L (98-107); Cholesterol 333 mg/dL (<200); Estimated GFR 67.92 (mL/min/1.73m2); Glucose 96 mg/dL (74-106); HDL Cholesterol 62 mg/dL (40-60); Potassium 4.9 mmol/L (3.5-5.1); Sodium 139 mmol/L (136-145); Total Protein 7.5 g/dL (6.4-8.2); Triglyceride 170 mg/dL (<150); Vitamin D 25 Total 8.5 ng/mL (30-100)
== END 2024-11-19 10:21 | disposition home or self-care (01) ==
LOC: NCHCN 10:20
PROVIDERS: PCP Family Medicine; Visit Provider Family Medicine
DX: I10 Essential (primary) hypertension (principal)
CPT/HCPCS: 80053; 80061; 82306; 85025

== ENCOUNTER 2025-05-28 14:46 | Outpatient (REF) | payer MEDICARE, SELFPAY | END 2025-05-28 14:47 | disposition home or self-care (01) | LOC: NCHCN 14:46 | PROVIDERS: PCP Family Medicine; Visit Provider Nurse Practitioner Family | DX: N39.0 Urinary tract infection, site not specified (principal) | CPT/HCPCS: 87086 ==

== ENCOUNTER 2025-06-04 14:48 | Outpatient (CLI) | payer MEDICARE, SELFPAY ==
[2025-06-04 14:22] LABS: Abs Immature Grans 0.06 10^3/uL (0.0-0.06); HCT 40.4 % (36.0-46.0); HGB 13.6 g/dL (11.2-15.7); Immature Grans % 0.5 %; MCH 32.3 pg (27.0-33.0); MCHC 33.7 % (32.0-36.0); MCV 96 fL (80-95); MPV 9.1 fL (8.0-11.0); Platelet Count 358 10^3/uL (130-400); RBC 4.21 10^6/uL (3.93-5.22); RDW 11.4 % (11.7-14.6); RDW-SD 40.1 fL; WBC 12.16 10^3/uL (4.4-10.8)
[2025-06-04 15:32] LABS: ALT 25 U/L (14-59); AST 14 U/L (15-37); Albumin 3.9 g/dL (3.4-5.0); Alkaline Phosphatase 86 U/L (46-116); Anion Gap 10.2 mmol/L (3-11); BUN 8 mg/dL (7-18); Bilirubin, Total 0.6 mg/dL (0.2-1.0); CO2 27.8 mmol/L (21.0-32.0); Calcium 9.9 mg/dL (8.5-10.1); Chloride 98 mmol/L (98-107); Estimated GFR 67.92 (mL/min/1.73m2); Glucose 134 mg/dL (74-106); Potassium 4.3 mmol/L (3.5-5.1); Sodium 136 mmol/L (136-145); Total Protein 8.1 g/dL (6.4-8.2)
[2025-06-05 11:07] LABS: Lyme Ab w Rflx to Lyme Confirm Negative (Negative)
[2025-06-07 00:43] LABS: B. miyamotoi PCR Negative (Negative); Babesia divergens/MO-1 Negative (Negative); Ehrlichia muris eauclairensis Negative (Negative)
== END 2025-06-04 14:49 | disposition home or self-care (01) ==
LOC: LBO 14:48
PROVIDERS: PCP Family Medicine; Visit Provider Nurse Practitioner Family
DX: R53.1 Weakness (principal); R42 Dizziness and giddiness
CPT/HCPCS: 36415; 80053; 87798; 85025; 86618

== ENCOUNTER 2025-06-04 19:33 | Outpatient (REF) | payer MEDICARE, SELFPAY | END 2025-06-04 19:34 | disposition home or self-care (01) | LOC: NCHCN 19:33 | PROVIDERS: PCP Family Medicine; Visit Provider Nurse Practitioner Family | DX: R53.81 Other malaise (principal); B96.29 Other Escherichia coli [E. coli] as the cause of diseases classified elsewhere | CPT/HCPCS: 87077; 87086; 87186 ==

== ENCOUNTER 2025-06-05 18:09 | Outpatient (REF) | payer MEDICARE, SELFPAY ==
[2025-06-05 20:40] LABS: Abs Immature Grans 0.09 10^3/uL (0.0-0.06); HCT 39.9 % (36.0-46.0); HGB 13.6 g/dL (11.2-15.7); Immature Grans % 0.7 %; MCH 33.7 pg (27.0-33.0); MCHC 34.1 % (32.0-36.0); MCV 99 fL (80-95); MPV 9.7 fL (8.0-11.0); Platelet Count 372 10^3/uL (130-400); RBC 4.03 10^6/uL (3.93-5.22); RDW 11.6 % (11.7-14.6); RDW-SD 42.5 fL; WBC 13.74 10^3/uL (4.4-10.8)
== END 2025-06-05 18:10 | disposition home or self-care (01) ==
LOC: NCHCN 18:09
PROVIDERS: PCP Family Medicine; Visit Provider Family Medicine
DX: D72.829 Elevated white blood cell count, unspecified (principal)
CPT/HCPCS: 86790; 85025